=== PATIENT | male | born 1990 | race Two or more races ===

== ENCOUNTER 2019-05-27 17:16 | Emergency (ER) | payer SELFPAY ==
[~2019-05-27] VITALS: Ht 165.1 cm; Wt 59.0 kg
[2019-05-27 17:40] VITALS: BP 139/105
[2019-05-27] MEDS ORDERED: LIDOCAINE 2%/EPI 1:100,000 20 ML VIAL. IJ STA (17:52)
[2019-05-27] MEDS ORDERED: AMOX1TAB61 PO (17:58)
--- NOTE | 2019-05-27 17:58 | PHYS DOC ---
Past Medical History Attending Signature I have participated in the care of this patient and I have reviewed and agree with all pertinent clinical information above including history, exam, and recommendations. (ROOSEVELT JOHNSON MD) Adult General Chief Complaint Chief Complaint: LACERATION/AVULSION HPI HPI Patient is a 28 year old male who presents with a laceration to his left knee. The patient states that around 10:00 AM this morning he was using hedge clippers and as he was trying to clip up prune patel it dropped and hit him in the left knee. Has a laceration to the knee. No other complaints. (STEPAN MADRID APRN) Review of Systems Review of Systems Constitutional: Denies fever or chills [] Eyes: Denies change in visual acuity, redness, or eye pain [] HENT: Denies nasal congestion or sore throat [] Respiratory: Denies cough or shortness of breath [] Cardiovascular: No additional information not addressed in HPI [] GI: Denies abdominal pain, nausea, vomiting, bloody stools or diarrhea [] : Denies dysuria or hematuria [] Musculoskeletal: Denies back pain or joint pain [] Integument: Has laceration to the L knee. Neurologic: Denies headache, focal weakness or sensory changes [] Endocrine: Denies polyuria or polydipsia [] Complete systems were reviewed and found to be within normal limits, except as documented in this note. (STEPAN MADRID APRN) Current Medications Current Medications Current Medications Medications (Trade) Dose Ordered Sig/Abdirizak Start Time Stop Time Status Last Admin Dose Admin Diphtheria/ Tetanus/Acell Pertussis (Boostrix) 0.5 ml ONCE ONCE 05/27/19 18:30 05/27/19 18:31 DC 05/27/19 18:28 0.5 ML Lidocaine/ Epinephrine (LIDOCAINE 2%-EPI 1:100,000 multi-dose) 20 ml 1X STAT 05/27/19 17:52 05/27/19 18:08 DC 05/27/19 18:22 20 ML Neomycin/ Polymyxin/ Bacitracin (Triple Antibiotic Ointment) 1 pkt 1X STAT 05/27/19 18:35 05/27/19 18:37 DC 05/27/19 18:30 1 PKT (ROOSEVELT JOHNSON MD) Allergies Allergies Allergies Coded Allergies Type Severity Reaction Last Updated Verified No Known Drug Allergies 05/27/19 No (ROOSEVELT JOHNSON MD) Physical Exam Physical Exam Constitutional: Well developed, well nourished, no acute distress, non-toxic appearance. [] HENT: Normocephalic, atraumatic, bilateral external ears normal, oropharynx moist, no oral exudates, nose normal. [] Eyes: PERRLA, EOMI, conjunctiva normal, no discharge. [] Neck: Normal range of motion, no tenderness, supple, no stridor. [] Cardiovascular:Heart rate regular rhythm, no murmur [] Lungs & Thorax: Bilateral breath sounds clear to auscultation [] Abdomen: Bowel sounds normal, soft, no tenderness, no masses, no pulsatile masses. [] Skin: 1 inch laceration to the superior L knee. Back: No tenderness, no CVA tenderness. [] Extremities: No tenderness, no cyanosis, no clubbing, ROM intact, no edema. [] Neurologic: Alert and oriented X 3, normal motor function, normal sensory function, no focal deficits noted. [] Psychologic: Affect normal, judgement normal, mood normal. [] (STEPAN MADRID APRN) Current Patient Data Vital Signs Vital Signs Date Time Temp Pulse Resp B/P (MAP) Pulse Ox O2 Delivery O2 Flow Rate FiO2 05/27/19 17:40 98.5 56 17 139/105 (116) 97 Room Air 98.5 (ROOSEVELT JOHNSON MD) EKG EKG [] (STEPAN MADRID APRN) Radiology/Procedures Radiology/Procedures Indication: Laceration to L knee. Procedure: The patient was placed in the appropriate position and anesthesia around the lac was 2% lidocaine with epi (3 mL). The area was then cleansed with 250 mL of ns. The laceration was closed with 5 3-0 Ethilon monofilament simple interrupted sutures. The wound area was then dressed with dressing. Total repaired wound length: 2.5 cm. The patient tolerated the procedure well. Complications: None. X-ray interpreted by Dr. Johnson No obvious acute fracture or foreign body. (STEPAN MADRID APRN) Course & Med Decision Making Course & Med Decision Making Pertinent Labs and Imaging studies reviewed. (See chart for details) Will give Tetanus, X-ray, and suture laceration. Because the wound has been open for a while I will place on Augmentin. Laceration was sutured with no complications. Will d/c home. (STEPAN MADRID APRN) Dragon Disclaimer Dragon Disclaimer This electronic medical record was generated, in whole or in part, using a voice recognition dictation system. (STEPAN MADRID APRN) Departure Departure Impression: Primary Impression: Laceration of knee Disposition: HOME, SELF-CARE Condition: STABLE Referrals: NO PCP (PCP) Patient Instructions: Laceration Care, Adult Additional Instructions: Thank you for visiting [facility]. We appreciate you trusting us with your care. If any additional problems come up don't hesitate to return to visit us. Please follow up with your primary care provider so they can plan additional care if needed and know about the problem that you had. If symptoms worsen come back to the Emergency Department. Any concerning symptoms that start such as chest pain, shortness of air, weakness or numbness on one side of the body, running high fevers or any other concerning symptoms return to the ER. Please keep your wound dry, especially for the first 24 hours. After the first 24 hours you can wet the wound for a short time. Do not soak the wound or swim until the sutures have been removed. Please have the sutures removed in 7-10 days by your primary care doctor or return to ER for removal. Please keep the wound clean and change your bandage at least twice per day. You can use Neosporin on the wound to help reduce the chance of infection. If you notice signs of infection such as drainage from the wound (Pus), redness, increased pain or swelling return to ER for treatment. You have been prescribed an antibiotic today to help fight your infection. Please take all of the antibiotic as directed. If after 48 hours the infection is not improving, please return for more care. If the infection worsens, return to ER for additional care. Scripts Amoxicillin/Potassium Clav (AUGMENTIN 875-125 TABLET) 1 Each Tablet 1 TAB PO BID for 7 Days, #14 TAB 0 Refills Prov: STEPAN MADRID APRN 05/27/19 Problem Qualifiers Primary Impression: Laceration of knee Encounter type: initial encounter Laterality: left Qualified Codes: S81.012A - Laceration without foreign body, left knee, initial encounter STEPAN MADRID APRN May 27, 2019 17:58 ROOSEVELT JOHNSON MD May 28, 2019 04:24
[2019-05-27] MEDS ORDERED: DIPHTH,PERTUSS(ACELL),TET TOX 0.5 ML DISP.SYRIN. VAX IM ONE (18:30)
[2019-05-27] MEDS ORDERED: NEOMY/BACITR/POLYMYXIN OINT PACKET. TP STA (18:35)
--- NOTE | 2019-05-27 20:19 | RAD ---
KNEE LEFT 3V DATE: 05/27/2019 5:32 PM INDICATION: Injury, laceration COMPARISON: None. FINDINGS: Bones: There is no evidence of acute fracture or dislocation. Joints: The joint spaces are normal. There is no joint effusion. Miscellaneous: No radiographic foreign body IMPRESSION: No acute fracture. No radiopaque foreign body. Electronically signed by: Carlos Hawkins MD (05/27/2019 8:16 PM) [facility]
== END 2019-05-27 18:44 | disposition home or self-care (01) ==
LOC: ER 17:16
DX: S81.012A Laceration without foreign body, left knee, initial encounter (principal); W20.8XXA Other cause of strike by thrown, projected or falling object, initial encounter; Y93.89 Activity, other specified; Y92.89 Other specified places as the place of occurrence of the external cause; Y99.8 Other external cause status
CPT/HCPCS: 12011; 73562; 90471; 90715; 99284; J3490

== ENCOUNTER 2019-06-06 19:40 | Emergency (ER) | payer SELFPAY ==
[~2019-06-06] VITALS: Ht 165.1 cm; Wt 59.0 kg
[~2019-06-06 19:40] MED LIST: AMOX1TAB61 PO
[2019-06-06 20:00] VITALS: BP 121/77
--- NOTE | 2019-06-06 20:50 | PHYS DOC ---
Past Medical History Past Medical History: No Pertinent History Past Surgical History: No Surgical History Alcohol Use: Occasionally Drug Use: Marijuana Adult General Chief Complaint Chief Complaint: SUTURE/STAPLE REMOVAL HPI HPI Patient is a 28 year old male who presents to the ER for suture removal. Pt denies any fever, bleeding, redness, or drainage. He denies any pain. Pt states he had the sutures placed here 10 days ago. All other ROS is neg unless o therwise noted in HPI. Review of Systems Review of Systems See Above Allergies Allergies Allergies Coded Allergies Type Severity Reaction Last Updated Verified No Known Drug Allergies 05/27/19 No Physical Exam Physical Exam See Above Constitutional: Well developed, well nourished, no acute distress, non-toxic appearance. [] HENT: Normocephalic, atraumatic, bilateral external ears normal, nose normal. [] Eyes: PERRLA, EOMI, conjunctiva normal, no discharge. [] Neck: Normal range of motion, no stridor. [] Lungs & Thorax: Respirations even and unlabored, no retractions, no respiratory distress Skin: Warm, dry, no erythema, no rash; laceration noted to left lower thigh just proximal to the knee, no erythema, edges are well approximated, [address], no crusting, no warmth, no drainage [] Extremities: No cyanosis, ROM intact, no edema. [] Neurologic: Alert and oriented X 3, no focal deficits noted. [] Psychologic: Affect normal, judgement normal, mood normal. [] Current Patient Data Vital Signs Vital Signs Date Time Temp Pulse Resp B/P (MAP) Pulse Ox O2 Delivery O2 Flow Rate FiO2 06/06/19 20:00 98.3 63 16 121/77 (92) 98 Room Air 98.3 EKG EKG [] Radiology/Procedures Radiology/Procedures Suture Removal by me: 5 sutures were Sutures removed with tweezers and scissors without incident. No bleeding, no drainage, no wound dehiscence. Steri-Strips were applied to the site after suture removal by nursing staff. Wound shows no evidence of infection, foreign body, neurologic injury, vascular injury, open joint or tendon laceration. Patient to follow up PRN.[] Course & Med Decision Making Course & Med Decision Making Pertinent Labs and Imaging studies reviewed. (See chart for details) [] Dragon Disclaimer Dragon Disclaimer This electronic medical record was generated, in whole or in part, using a voice recognition dictation system. Departure Departure Impression: Primary Impression: Visit for suture removal Disposition: HOME, SELF-CARE Condition: STABLE Referrals: NO PCP (PCP) Patient Instructions: Sterile Tape Wound Closure, Suture Removal-Brief Additional Instructions: Tylenol or ibuprofen as needed for pain. Follow-up with your primary care doctor as needed, return to the ER if symptoms worsen. LAURA BELCHER CLAY [employer] OPERATOR Jun 06, 2019 20:50
== END 2019-06-06 20:55 | disposition home or self-care (01) ==
LOC: ER 19:40
DX: S71.112D Laceration without foreign body, left thigh, subsequent encounter (principal); F12.90 Cannabis use, unspecified, uncomplicated; X58.XXXA Exposure to other specified factors, initial encounter
CPT/HCPCS: 99282